=== PATIENT | female | born 1960 | race Asian ===

== ENCOUNTER 2019-08-11 18:14 | Inpatient (IN) | payer SELFPAY ==
[~2019-08-11] VITALS: Ht 149.9 cm; Wt 63.6 kg
[~2019-08-11 18:14] MED LIST: Aspirin PO; LISI10TA PO
--- NOTE | 2019-08-11 18:49 | PHYS DOC ---
Past Medical History Past Medical History: Hypertension Past Surgical History: No Surgical History Alcohol Use: None Drug Use: None NIHSS Stroke Scale NIH Stroke Scale: NIH Stroke Scale Response (Comments) Value Level of Consciousness: 0 Alert/Responsive 0 LOC Questions: 0 Answers both correctly 0 Best Gaze: 0 Normal 0 Visual: 0 No visual loss 0 Facial Palsy: 0 Normal, symmetrical 0 Motor - Left Arm 0 No drift 0 Motor - Right Arm 0 No drift 0 Motor - Left Leg 0 No drift 0 Motor: Right Leg 0 No drift 0 Limb Ataxia: 0 Absent 0 Sensory: 0 No loss 0 Best Language: 0 Normal 0 Dysathria: 0 Normal 0 Extinction and Inattention: 0 Normal 0 Total 0 Adult General Chief Complaint Chief Complaint: NEURO SYMPTOMS/DEFICITS HPI HPI 59-year-old female with history of hypertension presents to the emergency department with complaints of left upper extremity numbness tingling, fluctuating numbness tingling. Patient's last normal when she went to bed last night. She woke with symptoms this morning and have been persistent. Patient denies any motor dysfunction of her upper extremity or lower extremity. She denies any visual changes, facial droop, speech difficulty or slurred speech. Patient describes a headache. Blood pressure initially 200 systolically upper 100s. Given her persistent symptoms she presented to the ER for further evaluation. Nothing makes her symptoms worse, nothing makes her symptoms better. Review of Systems Review of Systems Constitutional: Denies fever or chills [] Eyes: Denies change in visual acuity, redness, or eye pain [] Respiratory: Denies cough or shortness of breath [] Cardiovascular: No additional information not addressed in HPI [] GI: Denies abdominal pain, nausea, vomiting, bloody stools or diarrhea [] : Denies dysuria or hematuria [] Musculoskeletal: Chronic back pain Integument: Denies rash or skin lesions [] Neurologic: + headache, LUE weakness, tingling, LLE weakness, tingling All other systems were reviewed and found to be within normal limits, except as documented in this note. Current Medications Current Medications Current Medications Medications (Trade) Dose Ordered Sig/Gil Start Time Stop Time Status Last Admin Dose Admin Acetaminophen (Tylenol) 650 mg PRN Q4HRS PRN 08/11/19 20:00 08/12/19 19:59 Aspirin (Ammon Aspirin) 325 mg 1X ONCE 08/11/19 20:00 08/11/19 20:01 DC Info (CONTRAST GIVEN -- Rx MONITORING) 1 each PRN DAILY PRN 08/11/19 19:15 08/13/19 19:14 Iohexol (Omnipaque 350 Mg/ml) 100 ml STK-MED ONCE 08/11/19 19:12 08/11/19 19:12 DC Labetalol HCl (Normodyne Iv Push) 10 mg 1X ONCE 08/11/19 19:30 08/11/19 19:31 DC 08/11/19 19:05 10 MG Ondansetron HCl (Zofran) 4 mg PRN Q8HRS PRN 08/11/19 20:00 08/12/19 19:59 Potassium Chloride (Klor-Con) 40 meq 1X ONCE 08/11/19 20:00 08/11/19 20:01 DC Allergies Allergies Allergies Coded Allergies Type Severity Reaction Last Updated Verified No Known Drug Allergies 09/18/15 No Physical Exam Physical Exam Constitutional: Well developed, well nourished, no acute distress, non-toxic appearance. [] HENT: Normocephalic, atraumatic, bilateral external ears normal, oropharynx moist, no oral exudates, nose normal. [] Eyes: PERRLA, EOMI, conjunctiva normal, no discharge. [] Cardiovascular:Heart rate regular rhythm, no murmur [] Lungs & Thorax: Bilateral breath sounds clear to auscultation [] Abdomen: Bowel sounds normal, soft, no tenderness, no masses, no pulsatile mass es. [] Skin: Warm, dry, no erythema, no rash. [] Back: no CVA tenderness. [] Extremities: No tenderness, no cyanosis, no clubbing, ROM intact, no edema. [] Neurologic: Alert and oriented X 3, normal motor function, no focal deficits noted. [] Psychologic: Affect normal, judgement normal, mood normal. [] Current Patient Data Vital Signs Vital Signs Date Time Temp Pulse Resp B/P (MAP) Pulse Ox O2 Delivery O2 Flow Rate FiO2 08/11/19 19:05 78 199/97 08/11/19 18:41 98.6 20 94 Room Air 98.6 Lab Values Laboratory Tests Test 08/11/19 18:48 08/11/19 18:51 Glucose (Fingerstick) 149 mg/dL (70-99) H White Blood Count 5.7 x10^3/uL (4.0-11.0) Red Blood Count 5.07 x10^6/uL (3.50-5.40) Hemoglobin 15.0 g/dL (12.0-15.5) Hematocrit 44.8 % (36.0-47.0) Mean Corpuscular Volume 88 fL (79-100) Mean Corpuscular Hemoglobin 30 pg (25-35) Mean Corpuscular Hemoglobin Concent 34 g/dL (31-37) Red Cell Distribution Width 13.8 % (11.5-14.5) Platelet Count 234 x10^3/uL (140-400) Neutrophils (%) (Auto) 51 % (31-73) Lymphocytes (%) (Auto) 44 % (24-48) Monocytes (%) (Auto) 4 % (0-9) Eosinophils (%) (Auto) 1 % (0-3) Basophils (%) (Auto) 1 % (0-3) Neutrophils # (Auto) 2.9 x10^3/uL (1.8-7.7) Lymphocytes # (Auto) 2.5 x10^3/uL (1.0-4.8) Monocytes # (Auto) 0.2 x10^3/uL (0.0-1.1) Eosinophils # (Auto) 0.1 x10^3/uL (0.0-0.7) Basophils # (Auto) 0.0 x10^3/uL (0.0-0.2) Prothrombin Time 12.4 SEC (11.7-14.0) Prothrombin Time INR 1.0 (0.8-1.1) Activated Partial Thromboplast Time 30 SEC (24-38) Sodium Level 144 mmol/L (136-145) Potassium Level 3.1 mmol/L (3.5-5.1) L Chloride Level 104 mmol/L (98-107) Carbon Dioxide Level 30 mmol/L (21-32) Anion Gap 10 (6-14) Blood Urea Nitrogen 15 mg/dL (7-20) Creatinine 1.0 mg/dL (0.6-1.0) Estimated GFR (Cockcroft-Gault) 56.9 Glucose Level 154 mg/dL (70-99) H Calcium Level 9.2 mg/dL (8.5-10.1) Laboratory Tests 08/11/19 18:51 Laboratory Tests 08/11/19 18:51 EKG EKG EKG reviewed, heart rate 82, normal sinus rhythm, left axis deviation. Nonurgent EKG[] Interpretation Time: Interpretation time 1912 Radiology/Procedures Radiology/Procedures [facility] [address] [place] [address] IMAGING REPORT Signed PATIENT: CARMEN WILBURN ACCOUNT: [id number] : 1960 LOCATION: ER AGE: 59 SEX: F EXAM STATUS: REG ER ORD. PHYSICIAN: YUN CLEVELAND MD REASON: Left upper ext weakness, onset however > 4 hours PROCEDURE: CT HEAD WO CONTRAST CT head without contrast PQRS statement: CT scans at this facility use dose reduction including either automated exposure control, iterative reconstructions, and /or weight based radiation dosing via mA and kV modification when appropriate to reduce radiation dose to as low as reasonably achievable. HISTORY: Left upper extremity weakness. COMPARISON: CT head February 28, 2007. TECHNIQUE: Noncontrast imaging skull base to vertex. FINDINGS: Linear hypodensity of the left external capsule white matter is stable to imaging in 2006 most likely a chronic ischemic or demyelinating lesion. No new infarct since prior imaging or acute ischemic changes evident. No intracranial hemorrhage, mass or hydrocephalus. Orbits, mastoids, paranasal sinuses and bones are unremarkable. Left maxillary sinus small volume of fluid could represent sinusitis. IMPRESSION: No acute intracranial CT abnormality. Electronically signed by: Betr Lin MD (08/11/2019 7:28 PM) [facility] DICTATED and SIGNED BY: BERT LIN MD DATE: 08/11/191927[] Course & Med Decision Making Course & Med Decision Making Pertinent Labs and Imaging studies reviewed. (See chart for details) []59-year-old female with history of hypertension presents to the emergency department with complaints of left upper extremity numbness tingling, fluctuating numbness tingling. Patient's last normal when she went to bed last night. She woke with symptoms this morning and have been persistent. Patient denies any motor dysfunction of her upper extremity or lower extremity. She denies any visual changes, facial droop, speech difficulty or slurred speech. Patient describes a headache. Blood pressure initially 200 systolically upper 100s. Given her persistent symptoms she presented to the ER for further eval uation. Nothing makes her symptoms worse, nothing makes her symptoms better. Labs, imaging reviewed. CT head negative for acute process. She does have some hypokalemia placed in the emergency department. CTA head and neck with official result pending Information, discussed with Dr. Solis, neuro consult placed Discussed admit with patient/family at bedside Dragon Disclaimer Dragon Disclaimer This electronic medical record was generated, in whole or in part, using a voice recognition dictation system. Departure Departure Impression: Primary Impression: Hypertensive urgency Additional Impression: Left sided numbness Disposition: 09 ADMITTED INPATIENT Admitting Physician: MARCO A Condition: STABLE Referrals: INO VICKERS MD (PCP) Problem Qualifiers YUN CLEVELAND MD Aug 11, 2019 18:49
[2019-08-11 19:01] LABS: BASO % 1 % (0-3); EOS # 0.1 x10^3/uL (0.0-0.7); EOS % 1 % (0-3); HEMATOCRIT 44.8 % (36.0-47.0); LYMPH # 2.5 x10^3/uL (1.0-4.8); LYMPH % 44 % (24-48); MEAN CORPUSCULAR HEMOGLOBIN 30 pg (25-35); MEAN CORPUSCULAR HGB CONC 34 g/dL (31-37); MEAN CORPUSCULAR VOLUME 88 fL (79-100); MONO # 0.2 x10^3/uL (0.0-1.1); MONO % 4 % (0-9); NEUT # 2.9 x10^3/uL (1.8-7.7); NEUT % 51 % (31-73); PLATELET COUNT 234 x10^3/uL (140-400); RED BLOOD COUNT 5.07 x10^6/uL (3.50-5.40); RED CELL DISTRIBUTION WIDTH 13.8 % (11.5-14.5); WHITE BLOOD COUNT 5.7 x10^3/uL (4.0-11.0)
[2019-08-11 19:07] LABS: CALCIUM 9.2 mg/dL (8.5-10.1); GFR 56.9; POTASSIUM 3.1 mmol/L (3.5-5.1)
[2019-08-11 19:08] LABS: PROTHROMBIN TIME PATIENT 12.4 SEC (11.7-14.0)
[2019-08-11] MEDS ORDERED: IOHEXOL 350 MG/ML 100 ML VIAL. ONE (19:12)
[2019-08-11] MEDS ORDERED: CONTRAST GIVEN. MC PRN (19:15)
[2019-08-11] MEDS ORDERED: ACETAMINOPHEN 500 MG TABLET PO ONE (19:30)
[2019-08-11] MEDS ORDERED: LABETALOL 20 MG/4 ML DISP.SYRIN. IVP ONE (19:30)
[2019-08-11] MEDS ORDERED: IOHEXOL 350 MG/ML 100 ML VIAL. IV ONE (19:30)
--- NOTE | 2019-08-11 19:31 | RAD ---
CT head without contrast PQRS statement: CT scans at this facility use dose reduction including either automated exposure control, iterative reconstructions, and /or weight based radiation dosing via mA and kV modification when appropriate to reduce radiation dose to as low as reasonably achievable. HISTORY: Left upper extremity weakness. COMPARISON: CT head February 28, 2007. TECHNIQUE: Noncontrast imaging skull base to vertex. FINDINGS: Linear hypodensity of the left external capsule white matter is stable to imaging in 2006 most likely a chronic ischemic or demyelinating lesion. No new infarct since prior imaging or acute ischemic changes evident. No intracranial hemorrhage, mass or hydrocephalus. Orbits, mastoids, paranasal sinuses and bones are unremarkable. Left maxillary sinus small volume of fluid could represent sinusitis. IMPRESSION: No acute intracranial CT abnormality. Electronically signed by: César Lin MD (08/11/2019 7:28 PM) [facility]
--- NOTE | 2019-08-11 19:58 | RAD ---
PORTABLE CHEST 1V Clinical History: Procedures hypertension and possible stroke Technique: AP view of the chest was obtained at 08/11/2019 7:32 PM. Comparison: None. Findings: The cardiomediastinal silhouette is normal. The pulmonary vasculature is normal. The lungs and pleural margins are clear. Impression: No evidence of an acute cardiopulmonary process. Electronically signed by: Serjio Yao III, MD (08/11/2019 7:55 PM) [facility]
[2019-08-11] MEDS ORDERED: ASPIRIN 325 MG TABLET PO ONE (20:00)
[2019-08-11] MEDS ORDERED: POTASSIUM CHLORIDE 20 MEQ TABLET.ER. PO ONE (20:00)
[2019-08-11] MEDS ORDERED: ACETAMINOPHEN 325 MG TABLET. PO PRN (20:00)
[2019-08-11] MEDS ORDERED: ONDANSETRON PF 4 MG/2 ML VIAL. IV PRN (20:00)
--- NOTE | 2019-08-11 20:40 | RAD ---
CT angiography head and neck with contrast COMPARISON: CT head August 11, 2019. Stenosis calculations for CT, MR, and conventional angiography are based upon measurements of the distal ICA diameter in accordance with the NASCET methodology. Stenosis calculations for carotid ultrasound studies are derived from validated velocity criteria which are known to correlate with the NASCET methodology. PQRS statement: CT scans at this facility use dose reduction including either automated exposure control, iterative reconstructions, and /or weight based radiation dosing via mA and kV modification when appropriate to reduce radiation dose to as low as reasonably achievable. HISTORY: Left upper extremity weakness. TECHNIQUE: Helical CT imaging of the head and neck with 3-D MIP and volume reconstructions of the arteries characterize vascular anatomy and pathology with 60 mL Omnipaque 350 intravenous contrast. Neck findings: Three-vessel aortic arch the ostia are patent. Vertebral arteries are patent, no plaque, dissection, thrombus, stenosis or occlusion. Left carotid artery demonstrates very mild partially calcified plaque along the posterior lateral wall the bifurcation and proximal internal carotid without measurable stenosis. Tortuosity of the internal carotid below the skull base. No dissection, thrombus, stenosis or occlusion. Right carotid artery demonstrates very mild calcified plaque in the bifurcation without measurable stenosis. No dissection, thrombus, significant stenosis or occlusion. 4 mm right upper lobe pulmonary nodule adjacent of the pulmonary vessel image 42. Multilevel cervical neural foraminal narrowing due to uncovertebral and facet spurs mainly on the left. Head findings: Calcified plaque cavernous carotid arteries. type bilateral posterior cerebral arteries and resultant hypoplastic basilar artery. No high-grade stenosis, thrombus, occlusion or aneurysm. IMPRESSION: 1. No large vessel occlusion. 2. Mild plaquing without significant stenosis as described above. 3. 4 mm right upper lobe pulmonary nodule. Per Fleischner guidelines if the patient has risk factors for malignancy CT follow-up in 12 months would be advised otherwise no follow-up may be necessary. 4. Cervical disc disease and arthritis as described above. Electronically signed by: César Lin MD (08/11/2019 8:37 PM) [facility]
[2019-08-11 22:17] VITALS: BP 178/97
[2019-08-11] MEDS ORDERED: HYDR12.58 PO (23:44)
[2019-08-11] MEDS ORDERED: INFLUENZA VAX SCREEN BY RX. MC PRN (23:45)
[2019-08-12] MEDS: amLODIPine BESYLATE 10 MG TABLET PO SCH ×2 (00:18→08:45)
[2019-08-12 03:40] VITALS: BP 128/80
[2019-08-12 05:30] LABS: BASO % 1 % (0-3); EOS # 0.1 x10^3/uL (0.0-0.7); EOS % 2 % (0-3); HEMATOCRIT 42.5 % (36.0-47.0); HEMOGLOBIN 14.5 g/dL (12.0-15.5); LYMPH # 2.6 x10^3/uL (1.0-4.8); LYMPH % 47 % (24-48); MEAN CORPUSCULAR HEMOGLOBIN 30 pg (25-35); MEAN CORPUSCULAR HGB CONC 34 g/dL (31-37); MEAN CORPUSCULAR VOLUME 88 fL (79-100); MONO # 0.3 x10^3/uL (0.0-1.1); MONO % 5 % (0-9); NEUT # 2.5 x10^3/uL (1.8-7.7); NEUT % 46 % (31-73); PLATELET COUNT 224 x10^3/uL (140-400); RED BLOOD COUNT 4.84 x10^6/uL (3.50-5.40); RED CELL DISTRIBUTION WIDTH 13.5 % (11.5-14.5); WHITE BLOOD COUNT 5.4 x10^3/uL (4.0-11.0)
[2019-08-12 06:17] LABS: ALBUMIN 3.7 g/dL (3.4-5.0); CALCIUM 9.2 mg/dL (8.5-10.1); CREATININE 0.8 mg/dL (0.6-1.0); GFR 73.7; POTASSIUM 3.3 mmol/L (3.5-5.1); TOTAL BILIRUBIN 0.4 mg/dL (0.2-1.0); TOTAL PROTEIN 7.5 g/dL (6.4-8.2)
--- NOTE | 2019-08-12 06:49 | EKG ---
[facility] [address] [place] [address] Test Date: 2019-08-11 Test Time: 19:00:49 Pat Name: CARMEN WILBURN Department: Room: Gender: F Marketing Director: : 1960 Requested By: YUN CLEVELAND Order Number: [id number] Reading MD: Measurements Intervals [place] Rate: 82 P: 38 NV: 158 QRS: -10 QRSD: 82 T: 32 QT: 380 QTc: 447 Interpretive Statements SINUS RHYTHM LEFTWARD AXIS OTHERWISE NORMAL ECG RI6.01 No previous ECG available for comparison
[2019-08-12 07:41] VITALS: BP 132/82
--- NOTE | 2019-08-12 07:49 | PDOC1 ---
History and Physical Date of Admission Date of Admission DATE: 08/12/19 TIME: 07:48 Identification/Chief Complaint Chief Complaint SEEN IN ER , 59-year-old female with history of hypertension presented to the emergency department with complaints of left upper extremity numbness tingling, fluctuating numbness tingling. Patient's last normal when she went to bed 08/10. She woke with symptoms 08/11 and have been persistent. Patient denies any motor dysfunction of her upper extremity or lower extremity. She denies any visual changes, facial droop, speech difficulty or slurred speech. Patient describes a headache. Blood pressure initially 200 systolically upper 100s. bp now normalized Past Medical History Past Medical History Past Medical History Past Medical History: Hypertension Past Surgical History: No Surgical History Alcohol Use: None Drug Use: None fhx htn PAST MEDICAL HISTORY Cardiovascular: HTN PAST SURGICAL HISTORY Past Surgical History: No pertinent history FAMILY HISTORY HTN SOCIAL HISTORY Smoke: No ALCOHOL: none Drugs: None Lives: with Family Cardiovascular: HTN Past Surgical History Past Surgical History: No pertinent history Family History Family History: Hypertension Social History Smoke: No ALCOHOL: none Drugs: None Current Problem List Problem List Problems Medical Problems: (1) Accelerated hypertension Status: Acute (2) Hypertensive urgency Status: Acute (3) Left sided numbness Status: Acute Current Medications Current Medications Current Medications Labetalol HCl (Normodyne Iv Push) 10 mg 1X ONCE IVP Last administered on 08/11/19at 19:05; Start 08/11/19 at 19:30; Stop 08/11/19 at 19:31; Status DC Acetaminophen (Tylenol) 1,000 mg 1X ONCE PO Last administered on 08/11/19at 19:05; Start 08/11/19 at 19:30; Stop 08/11/19 at 19:31; Status DC Iohexol (Omnipaque 350 Mg/ml) 60 ml 1X ONCE IV Last administered on 08/11/19at 19:19; Start 08/11/19 at 19:30; Stop 08/11/19 at 19:31; Status DC Info (CONTRAST GIVEN -- Rx MONITORING) 1 each PRN DAILY PRN MC SEE COMMENTS; Start 08/11/19 at 19:15; Stop 08/13/19 at 19:14 Iohexol (Omnipaque 350 Mg/ml) 100 ml STK-MED ONCE .ROUTE ; Start 08/11/19 at 19:12; Stop 08/11/19 at 19:12; Status DC Aspirin (Ammon Aspirin) 325 mg 1X ONCE PO Last administered on 08/11/19at 21:14; Start 08/11/19 at 20:00; Stop 08/11/19 at 20:01; Status DC Potassium Chloride (Klor-Con) 40 meq 1X ONCE PO Last administered on 08/11/19at 21:14; Start 08/11/19 at 20:00; Stop 08/11/19 at 20:01; Status DC Ondansetron HCl (Zofran) 4 mg PRN Q8HRS PRN IV NAUSEA/VOMITING; Start 08/11/19 at 20:00; Stop 08/12/19 at 19:59 Acetaminophen (Tylenol) 650 mg PRN Q4HRS PRN PO FEVER Last administered on 08/11/19at 23:42; Start 08/11/19 at 20:00; Stop 08/12/19 at 19:59 Influenza Virus Vaccine Quadrival (Afluria Quad 2019-20 (3yr Up) Syringe) 0.5 ml ONCE ONCE VAX IM ; Start 08/12/19 at 09:00; Stop 08/12/19 at 09:01 Amlodipine Besylate (Norvasc) 10 mg DAILY PO Last administered on 08/12/19at 00:18; Start 08/11/19 at 23:55 Info (FLU VACCINE SCREEN per RX) 1 each PRN 1X PRN MC SEE COMMENTS; Start 08/11/19 at 23:45; Status Cancel Active Scripts Active Prinivil (Lisinopril) 10 Mg Tablet 10 Mg PO DAILY [Aspirin] 81 MG Tablet. 81 Mg PO DAILYWBKFT Reported Hydrochlorothiazide Tablet (Hydrochlorothiazide) 12.5 Mg Tablet 25 Mg PO DAILY Allergies Allergies: Coded Allergies: No Known Drug Allergies (Unverified , 09/18/15) ROS Review of System Review of Systems Review of Systems Constitutional: Denies fever or chills [] Eyes: Denies change in visual acuity, redness, or eye pain [] Respiratory: Denies cough or shortness of breath [] Cardiovascular: No additional information not addressed in HPI [] GI: Denies abdominal pain, nausea, vomiting, bloody stools or diarrhea [] : Denies dysuria or hematuria [] Musculoskeletal: Chronic back pain Integument: Denies rash or skin lesions [] Neurologic: + headache, LUE weakness, tingling, LLE weakness, tingling 14 pt systems were reviewed and found to be within normal limits, except as documented Hematological and Lymphatic: No: Bleeding Problems, Blood Clots, Blood Transfusions, Brusing, Night Sweats, Pallor, Swollen Lymph Nodes, Other Neurological: Yes Headaches Physical Exam Physical Exam Physical Exam Physical Exam Constitutional: Well developed, well nourished, no acute distress, non-toxic appearance. [] HENT: Normocephalic, atraumatic, bilateral external ears normal, oropharynx moist, no oral exudates, nose normal. [] Eyes: PERRLA, EOMI, conjunctiva normal, no discharge. [] Cardiovascular:Heart rate regular rhythm, no murmur [] Lungs & Thorax: Bilateral breath sounds clear to auscultation [] Abdomen: Bowel sounds normal, soft, no tenderness, no masses, no pulsatile masses. [] Skin: Warm, dry, no erythema, no rash. [] Back: no CVA tenderness. [] Extremities: No tenderness, no cyanosis, no clubbing, ROM intact, no edema. [] Neurologic: Alert and oriented X 3, normal motor function, no focal deficits noted. [] Psychologic: Affect normal, judgment normal, mood normal. [] General: No acute distress Lungs: Clear to auscultation, Normal air movement Breasts: Not examined Abdomen: Soft Rectal Exam: not examined Extremities: No cyanosis, No edema Neuro: Normal speech, Cranial nerves 3-12 NL Vitals Vitals Vital Signs Date Time Temp Pulse Resp B/P (MAP) Pulse Ox O2 Delivery O2 Flow Rate FiO2 08/12/19 07:41 98.0 60 18 132/82 (99) 98 Room Air 98.0 Labs Labs Laboratory Tests Test 08/11/19 18:48 08/11/19 18:51 08/12/19 04:19 Glucose (Fingerstick) 149 mg/dL (70-99) White Blood Count 5.7 x10^3/uL (4.0-11.0) 5.4 x10^3/uL (4.0-11.0) Red Blood Count 5.07 x10^6/uL (3.50-5.40) 4.84 x10^6/uL (3.50-5.40) Hemoglobin 15.0 g/dL (12.0-15.5) 14.5 g/dL (12.0-15.5) Hematocrit 44.8 % (36.0-47.0) 42.5 % (36.0-47.0) Mean Corpuscular Volume 88 fL (79-100) 88 fL (79-100) Mean Corpuscular Hemoglobin 30 pg (25-35) 30 pg (25-35) Mean Corpuscular Hemoglobin Concent 34 g/dL (31-37) 34 g/dL (31-37) Red Cell Distribution Width 13.8 % (11.5-14.5) 13.5 % (11.5-14.5) Platelet Count 234 x10^3/uL (140-400) 224 x10^3/uL (140-400) Neutrophils (%) (Auto) 51 % (31-73) 46 % (31-73) Lymphocytes (%) (Auto) 44 % (24-48) 47 % (24-48) Monocytes (%) (Auto) 4 % (0-9) 5 % (0-9) Eosinophils (%) (Auto) 1 % (0-3) 2 % (0-3) Basophils (%) (Auto) 1 % (0-3) 1 % (0-3) Neutrophils # (Auto) 2.9 x10^3/uL (1.8-7.7) 2.5 x10^3/uL (1.8-7.7) Lymphocytes # (Auto) 2.5 x10^3/uL (1.0-4.8) 2.6 x10^3/uL (1.0-4.8) Monocytes # (Auto) 0.2 x10^3/uL (0.0-1.1) 0.3 x10^3/uL (0.0-1.1) Eosinophils # (Auto) 0.1 x10^3/uL (0.0-0.7) 0.1 x10^3/uL (0.0-0.7) Basophils # (Auto) 0.0 x10^3/uL (0.0-0.2) 0.0 x10^3/uL (0.0-0.2) Prothrombin Time 12.4 SEC (11.7-14.0) Prothromb Time International Ratio 1.0 (0.8-1.1) Activated Partial Thromboplast Time 30 SEC (24-38) Sodium Level 144 mmol/L (136-145) 142 mmol/L (136-145) Potassium Level 3.1 mmol/L (3.5-5.1) 3.3 mmol/L (3.5-5.1) Chloride Level 104 mmol/L (98-107) 105 mmol/L (98-107) Carbon Dioxide Level 30 mmol/L (21-32) 27 mmol/L (21-32) Anion Gap 10 (6-14) 10 (6-14) Blood Urea Nitrogen 15 mg/dL (7-20) 14 mg/dL (7-20) Creatinine 1.0 mg/dL (0.6-1.0) 0.8 mg/dL (0.6-1.0) Estimated GFR (Cockcroft-Gault) 56.9 73.7 Glucose Level 154 mg/dL (70-99) 99 mg/dL (70-99) Calcium Level 9.2 mg/dL (8.5-10.1) 9.2 mg/dL (8.5-10.1) BUN/Creatinine Ratio 18 (6-20) Total Bilirubin 0.4 mg/dL (0.2-1.0) Aspartate Amino Transf (AST/SGOT) 15 U/L (15-37) Alanine Aminotransferase (ALT/SGPT) 23 U/L (14-59) Alkaline Phosphatase 60 U/L (46-116) Total Protein 7.5 g/dL (6.4-8.2) Albumin 3.7 g/dL (3.4-5.0) Albumin/Globulin Ratio 1.0 (1.0-1.7) Laboratory Tests Test 08/11/19 18:48 08/11/19 18:51 08/12/19 04:19 Glucose (Fingerstick) 149 mg/dL (70-99) White Blood Count 5.7 x10^3/uL (4.0-11.0) 5.4 x10^3/uL (4.0-11.0) Red Blood Count 5.07 x10^6/uL (3.50-5.40) 4.84 x10^6/uL (3.50-5.40) Hemoglobin 15.0 g/dL (12.0-15.5) 14.5 g/dL (12.0-15.5) Hematocrit 44.8 % (36.0-47.0) 42.5 % (36.0-47.0) Mean Corpuscular Volume 88 fL (79-100) 88 fL (79-100) Mean Corpuscular Hemoglobin 30 pg (25-35) 30 pg (25-35) Mean Corpuscular Hemoglobin Concent 34 g/dL (31-37) 34 g/dL (31-37) Red Cell Distribution Width 13.8 % (11.5-14.5) 13.5 % (11.5-14.5) Platelet Count 234 x10^3/uL (140-400) 224 x10^3/uL (140-400) Neutrophils (%) (Auto) 51 % (31-73) 46 % (31-73) Lymphocytes (%) (Auto) 44 % (24-48) 47 % (24-48) Monocytes (%) (Auto) 4 % (0-9) 5 % (0-9) Eosinophils (%) (Auto) 1 % (0-3) 2 % (0-3) Basophils (%) (Auto) 1 % (0-3) 1 % (0-3) Neutrophils # (Auto) 2.9 x10^3/uL (1.8-7.7) 2.5 x10^3/uL (1.8-7.7) Lymphocytes # (Auto) 2.5 x10^3/uL (1.0-4.8) 2.6 x10^3/uL (1.0-4.8) Monocytes # (Auto) 0.2 x10^3/uL (0.0-1.1) 0.3 x10^3/uL (0.0-1.1) Eosinophils # (Auto) 0.1 x10^3/uL (0.0-0.7) 0.1 x10^3/uL (0.0-0.7) Basophils # (Auto) 0.0 x10^3/uL (0.0-0.2) 0.0 x10^3/uL (0.0-0.2) Prothrombin Time 12.4 SEC (11.7-14.0) Prothromb Time International Ratio 1.0 (0.8-1.1) Activated Partial Thromboplast Time 30 SEC (24-38) Sodium Level 144 mmol/L (136-145) 142 mmol/L (136-145) Potassium Level 3.1 mmol/L (3.5-5.1) 3.3 mmol/L (3.5-5.1) Chloride Level 104 mmol/L (98-107) 105 mmol/L (98-107) Carbon Dioxide Level 30 mmol/L (21-32) 27 mmol/L (21-32) Anion Gap 10 (6-14) 10 (6-14) Blood Urea Nitrogen 15 mg/dL (7-20) 14 mg/dL (7-20) Creatinine 1.0 mg/dL (0.6-1.0) 0.8 mg/dL (0.6-1.0) Estimated GFR (Cockcroft-Gault) 56.9 73.7 Glucose Level 154 mg/dL (70-99) 99 mg/dL (70-99) Calcium Level 9.2 mg/dL (8.5-10.1) 9.2 mg/dL (8.5-10.1) BUN/Creatinine Ratio 18 (6-20) Total Bilirubin 0.4 mg/dL (0.2-1.0) Aspartate Amino Transf (AST/SGOT) 15 U/L (15-37) Alanine Aminotransferase (ALT/SGPT) 23 U/L (14-59) Alkaline Phosphatase 60 U/L (46-116) Total Protein 7.5 g/dL (6.4-8.2) Albumin 3.7 g/dL (3.4-5.0) Albumin/Globulin Ratio 1.0 (1.0-1.7) Images Images CT angiography head and neck with contrast COMPARISON: CT head August 11, 2019. Stenosis calculations for CT, MR, and conventional angiography are based upon measurements of the distal ICA diameter in accordance with the NASCET methodology. Stenosis calculations for carotid ultrasound studies are derived from validated velocity criteria which are known to correlate with the NASCET methodology. PQRS statement: CT scans at this facility use dose reduction including either automated exposure control, iterative reconstructions, and /or weight based radiation dosing via mA and kV modification when appropriate to reduce radiation dose to as low as reasonably achievable. HISTORY: Left upper extremity weakness. TECHNIQUE: Helical CT imaging of the head and neck with 3-D MIP and volume reconstructions of the arteries characterize vascular anatomy and pathology with 60 mL Omnipaque 350 intravenous contrast. Neck findings: Three-vessel aortic arch the ostia are patent. Vertebral arteries are patent, no plaque, dissection, thrombus, stenosis or occlusion. Left carotid artery demonstrates very mild partially calcified plaque along the posterior lateral wall the bifurcation and proximal internal carotid without measurable stenosis. Tortuosity of the internal carotid below the skull base. No dissection, thrombus, stenosis or occlusion. Right carotid artery demonstrates very mild calcified plaque in the bifurcation without measurable stenosis. No dissection, thrombus, significant stenosis or occlusion. 4 mm right upper lobe pulmonary nodule adjacent of the pulmonary vessel image 42. Multilevel cervical neural foraminal narrowing due to uncovertebral and facet spurs mainly on the left. Head findings: Calcified plaque cavernous carotid arteries. type bilateral posterior cerebral arteries and resultant hypoplastic basilar artery. No high-grade stenosis, thrombus, occlusion or aneurysm. IMPRESSION: 1. No large vessel occlusion. 2. Mild plaquing without significant stenosis as described above. 3. 4 mm right upper lobe pulmonary nodule. Per Fleischner guidelines if the patient has risk factors for malignancy CT follow-up in 12 months would be advised otherwise no follow-up may be necessary. 4. Cervical disc disease and arthritis as described above. Electronically signed by: César Lin MD (08/11/2019 8:37 PM) VTE Prophylaxis Ordered VTE Prophylaxis Devices: Yes VTE Pharmacological Prophylaxi: Yes Assessment/Plan Assessment/Plan Impression: Hypertensive urgency, improved Left sided numbness, RESOLVED 08/[address] head Linear hypodensity of the left external capsule white matter is stable to imaging in 2006 most likely a chronic ischemic or demyelinating lesion. No new infarct since prior imaging or acute ischemic changes evident. No intracranial hemorrhage, mass or hydrocephalus hypokalemia ADMITTED tele 6th floor consult neurology bp control neurochecks q 4 hrs echo as out pt low sodium diet flp statin replace k 40MEQ PO X 1 NOW ok to d/c WITH NEUROLOGY, see PCP THURSDAY 56 MIN PT EXAM, CHART REVIEW,> 50% OF TIME SPENT WITH EXAM, CHART REVIEW, D/C PLANNING TAMMI SNYDER MD Aug 12, 2019 07:49
[2019-08-12] MEDS ORDERED: ASPIRIN CHEWABLE 81 MG TABLET. PO SCH (08:30)
[2019-08-12] MEDS ORDERED: FLU VAX QS 2019-20 (36MOS+)/PF 0.5 ML SYRINGE. VAX IM ONE (09:00)
[2019-08-12] MEDS ORDERED: DOCUSATE SODIUM 100 MG CAPSULE. PO PRN (11:30)
[2019-08-12] MEDS ORDERED: ONDANSETRON PF 4 MG/2 ML VIAL. IV PRN (11:30)
[2019-08-12] MEDS ORDERED: LORazepam 0.5 MG TABLET PO PRN (11:30)
[2019-08-12] MEDS ORDERED: ALBUTEROL SULFATE 2.5 MG/3 ML NEBU. NEB PRN (11:30)
[2019-08-12] MEDS ORDERED: 0.9 % SODIUM CHLORIDE 10 ML DISP.SYRIN. IV PRN (11:30)
[2019-08-12] MEDS ORDERED: ACETAMINOPHEN 325 MG TABLET. PO PRN (11:30)
[2019-08-12] MEDS ORDERED: guaiFENesin ORAL 200 MG/10 ML LIQUID. PO PRN (11:30)
[2019-08-12] MEDS ORDERED: MAG HYDROX/ALUMINUM HYD/SIMETH 30 ML ORAL.SUSP PO PRN (11:30)
--- NOTE | 2019-08-12 11:35 | PDOC2 ---
NEUROLOGY CONSULT Date of Admission Date of Admission DATE: 08/12/19 TIME: 11:28 Reason for Consult Reason for Consult: Stroke symptoms Referring Physician Referring Physician: Dr. Sloan Source Source: Chart review, Patient History of Present Illness History of Present Illness The patient is a 59-year-old right-handed female history of hypertension and she admits that she missed a day or 2 of her antihypertensives. 2 nights ago she started noticing some numbness on the left side and last night in the maturing she was found to have severe hypertension. With correction of this, all of her neurological symptoms have resolved, and she would like to go home. There is no prior history of stroke. Past Medical History Cardiovascular: HTN Psych: Anxiety Past Surgical History Past Surgical History: No pertinent history Family History Family History: No pertinent hx Social History Social History Angelic, retired, no alcohol or tobacco Current Medications Current Medications Current Medications Labetalol HCl (Normodyne Iv Push) 10 mg 1X ONCE IVP Last administered on 08/11/19at 19:05; Start 08/11/19 at 19:30; Stop 08/11/19 at 19:31; Status DC Acetaminophen (Tylenol) 1,000 mg 1X ONCE PO Last administered on 08/11/19at 19:05; Start 08/11/19 at 19:30; Stop 08/11/19 at 19:31; Status DC Iohexol (Omnipaque 350 Mg/ml) 60 ml 1X ONCE IV Last administered on 08/11/19at 19:19; Start 08/11/19 at 19:30; Stop 08/11/19 at 19:31; Status DC Info (CONTRAST GIVEN -- Rx MONITORING) 1 each PRN DAILY PRN MC SEE COMMENTS; Start 08/11/19 at 19:15; Stop 08/13/19 at 19:14 Iohexol (Omnipaque 350 Mg/ml) 100 ml STK-MED ONCE .ROUTE ; Start 08/11/19 at 19:12; Stop 08/11/19 at 19:12; Status DC Aspirin (Ammon Aspirin) 325 mg 1X ONCE PO Last administered on 08/11/19at 21:14; Start 08/11/19 at 20:00; Stop 08/11/19 at 20:01; Status DC Potassium Chloride (Klor-Con) 40 meq 1X ONCE PO Last administered on 08/11/19at 21:14; Start 08/11/19 at 20:00; Stop 08/11/19 at 20:01; Status DC Ondansetron HCl (Zofran) 4 mg PRN Q8HRS PRN IV NAUSEA/VOMITING; Start 08/11/19 at 20:00; Stop 08/12/19 at 11:26; Status DC Acetaminophen (Tylenol) 650 mg PRN Q4HRS PRN PO FEVER Last administered on 08/11/19at 23:42; Start 08/11/19 at 20:00; Stop 08/12/19 at 11:26; Status DC Influenza Virus Vaccine Quadrival (Afluria Quad 2019-20 (3yr Up) Syringe) 0.5 ml ONCE ONCE VAX IM Last administered on 08/12/19at 08:55; Start 08/12/19 at 09:00; Stop 08/12/19 at 09:01; Status DC Amlodipine Besylate (Norvasc) 10 mg DAILY PO Last administered on 08/12/19at 08:45; Start 08/11/19 at 23:55 Info (FLU VACCINE SCREEN per RX) 1 each PRN 1X PRN MC SEE COMMENTS; Start 08/11/19 at 23:45; Status Cancel Aspirin (Children'S Aspirin) 81 mg DAILYWBKFT PO Last administered on 08/12/19at 08:52; Start 08/12/19 at 08:30 Lisinopril (Prinivil) 10 mg DAILY PO ; Start 08/12/19 at 12:00 Hydrochlorothiazide (Hydrodiuril) 25 mg DAILY PO ; Start 08/12/19 at 12:00 Non-Formulary Medication ([Aspirin] ) 81 mg DAILYWBKFT PO ; Start 08/13/19 at 08:00; Status UNV Sodium Chloride (Normal Saline Flush) 3 ml QSHIFT PRN IV AFTER MEDS AND BLOOD DRAWS; Start 08/12/19 at 11:30 Ondansetron HCl (Zofran) 4 mg PRN Q4HRS PRN IV NAUSEA/VOMITING; Start 08/12/19 at 11:30 Acetaminophen (Tylenol) 650 mg PRN Q4HRS PRN PO TEMP OVER 100.4F OR MILD PAIN; Start 08/12/19 at 11:30 Al Hydroxide/Mg Hydroxide (Mylanta Plus Xs) 30 ml PRN DAILY PRN PO HEARTBURN / GAS; Start 08/12/19 at 11:30 Docusate Sodium (Colace) 100 mg PRN BID PRN PO CONSTIPATION; Start 08/12/19 at 11:30 Albuterol Sulfate (Ventolin Neb Soln) 2.5 mg PRN Q4HRS PRN NEB SHORTNESS OF BREATH; Start 08/12/19 at 11:30 Guaifenesin (Robitussin) 200 mg PRN Q4HRS PRN PO COUGH; Start 08/12/19 at 11:30 Lorazepam (Ativan) 0.5 mg PRN Q4HRS PRN PO ANXIETY / AGITATION; Start 08/12/19 at 11:30 Enoxaparin Sodium (Lovenox 40mg Syringe) 40 mg DAILY SQ ; Start 08/13/19 at 09:00; Status UNV Active Scripts Active Prinivil (Lisinopril) 10 Mg Tablet 10 Mg PO DAILY [Aspirin] 81 MG Tablet.dr 81 Mg PO DAILYWBKFT Reported Hydrochlorothiazide Tablet (Hydrochlorothiazide) 12.5 Mg Tablet 25 Mg PO DAILY Allergies Allergies: Coded Allergies: No Known Drug Allergies (Unverified , 09/18/15) ROS Review of System Negative for fever, chills, weight loss, shortness of breath, chest pain, indigestion, hematochezia, melena, and dysuria. Full 14-point review of systems is negative. Physical Exam Physical Examination General: Well-developed, well-nourished female in no acute distress HEENT: Normocephalic andatraumatic.Temporal arteriespulsatile and nontender.Fundoscopic exam unremarkable Neck: Supple without bruit, no meningismus Musculoskeletal: Stability:see neurologic. Gait exam:see neurologic. Tone:see neurologic.Strength:see neurologic. Neurological: Mental Status:intact, orientation, memory, attention span/concentration, language, fund of knowledge normal. Cranial Nerves:Pupils equal and reactive to light, extraocular movements areintact, visual abdullahi are full to confrontation. Facial sensation is normal. There is no facial asymmetry. Vestibulo-ocular reflex is intact. Palate elevates and tongue protrudes in midline. All other cranial related problems are negative except as mentioned before.Reflexes:2+ and symmetric with flexor plantar responses. Motor:5/5 strength with normal tone and bulk. Coordination:Finger-nose finger and [id number] testing are normal. Rapid alternating movements and fine finger movements are intact. Gait:Normal, including tandem. Sensory:Normal pinprick, vibration, light touch, proprioception. Vitals VITALS Vital Signs Date Time Temp Pulse Resp B/P (MAP) Pulse Ox O2 Delivery O2 Flow Rate FiO2 08/12/19 08:45 60 132/82 08/12/19 08:00 Room Air 08/12/19 07:41 98.0 18 98 98.0 Labs Labs Laboratory Tests Test 08/11/19 18:48 08/11/19 18:51 08/12/19 04:19 Glucose (Fingerstick) 149 mg/dL (70-99) White Blood Count 5.7 x10^3/uL (4.0-11.0) 5.4 x10^3/uL (4.0-11.0) Red Blood Count 5.07 x10^6/uL (3.50-5.40) 4.84 x10^6/uL (3.50-5.40) Hemoglobin 15.0 g/dL (12.0-15.5) 14.5 g/dL (12.0-15.5) Hematocrit 44.8 % (36.0-47.0) 42.5 % (36.0-47.0) Mean Corpuscular Volume 88 fL (79-100) 88 fL (79-100) Mean Corpuscular Hemoglobin 30 pg (25-35) 30 pg (25-35) Mean Corpuscular Hemoglobin Concent 34 g/dL (31-37) 34 g/dL (31-37) Red Cell Distribution Width 13.8 % (11.5-14.5) 13.5 % (11.5-14.5) Platelet Count 234 x10^3/uL (140-400) 224 x10^3/uL (140-400) Neutrophils (%) (Auto) 51 % (31-73) 46 % (31-73) Lymphocytes (%) (Auto) 44 % (24-48) 47 % (24-48) Monocytes (%) (Auto) 4 % (0-9) 5 % (0-9) Eosinophils (%) (Auto) 1 % (0-3) 2 % (0-3) Basophils (%) (Auto) 1 % (0-3) 1 % (0-3) Neutrophils # (Auto) 2.9 x10^3/uL (1.8-7.7) 2.5 x10^3/uL (1.8-7.7) Lymphocytes # (Auto) 2.5 x10^3/uL (1.0-4.8) 2.6 x10^3/uL (1.0-4.8) Monocytes # (Auto) 0.2 x10^3/uL (0.0-1.1) 0.3 x10^3/uL (0.0-1.1) Eosinophils # (Auto) 0.1 x10^3/uL (0.0-0.7) 0.1 x10^3/uL (0.0-0.7) Basophils # (Auto) 0.0 x10^3/uL (0.0-0.2) 0.0 x10^3/uL (0.0-0.2) Prothrombin Time 12.4 SEC (11.7-14.0) Prothromb Time International Ratio 1.0 (0.8-1.1) Activated Partial Thromboplast Time 30 SEC (24-38) Sodium Level 144 mmol/L (136-145) 142 mmol/L (136-145) Potassium Level 3.1 mmol/L (3.5-5.1) 3.3 mmol/L (3.5-5.1) Chloride Level 104 mmol/L (98-107) 105 mmol/L (98-107) Carbon Dioxide Level 30 mmol/L (21-32) 27 mmol/L (21-32) Anion Gap 10 (6-14) 10 (6-14) Blood Urea Nitrogen 15 mg/dL (7-20) 14 mg/dL (7-20) Creatinine 1.0 mg/dL (0.6-1.0) 0.8 mg/dL (0.6-1.0) Estimated GFR (Cockcroft-Gault) 56.9 73.7 Glucose Level 154 mg/dL (70-99) 99 mg/dL (70-99) Calcium Level 9.2 mg/dL (8.5-10.1) 9.2 mg/dL (8.5-10.1) BUN/Creatinine Ratio 18 (6-20) Total Bilirubin 0.4 mg/dL (0.2-1.0) Aspartate Amino Transf (AST/SGOT) 15 U/L (15-37) Alanine Aminotransferase (ALT/SGPT) 23 U/L (14-59) Alkaline Phosphatase 60 U/L (46-116) Total Protein 7.5 g/dL (6.4-8.2) Albumin 3.7 g/dL (3.4-5.0) Albumin/Globulin Ratio 1.0 (1.0-1.7) Laboratory Tests Test 08/11/19 18:48 08/11/19 18:51 08/12/19 04:19 Glucose (Fingerstick) 149 mg/dL (70-99) White Blood Count 5.7 x10^3/uL (4.0-11.0) 5.4 x10^3/uL (4.0-11.0) Red Blood Count 5.07 x10^6/uL (3.50-5.40) 4.84 x10^6/uL (3.50-5.40) Hemoglobin 15.0 g/dL (12.0-15.5) 14.5 g/dL (12.0-15.5) Hematocrit 44.8 % (36.0-47.0) 42.5 % (36.0-47.0) Mean Corpuscular Volume 88 fL (79-100) 88 fL (79-100) Mean Corpuscular Hemoglobin 30 pg (25-35) 30 pg (25-35) Mean Corpuscular Hemoglobin Concent 34 g/dL (31-37) 34 g/dL (31-37) Red Cell Distribution Width 13.8 % (11.5-14.5) 13.5 % (11.5-14.5) Platelet Count 234 x10^3/uL (140-400) 224 x10^3/uL (140-400) Neutrophils (%) (Auto) 51 % (31-73) 46 % (31-73) Lymphocytes (%) (Auto) 44 % (24-48) 47 % (24-48) Monocytes (%) (Auto) 4 % (0-9) 5 % (0-9) Eosinophils (%) (Auto) 1 % (0-3) 2 % (0-3) Basophils (%) (Auto) 1 % (0-3) 1 % (0-3) Neutrophils # (Auto) 2.9 x10^3/uL (1.8-7.7) 2.5 x10^3/uL (1.8-7.7) Lymphocytes # (Auto) 2.5 x10^3/uL (1.0-4.8) 2.6 x10^3/uL (1.0-4.8) Monocytes # (Auto) 0.2 x10^3/uL (0.0-1.1) 0.3 x10^3/uL (0.0-1.1) Eosinophils # (Auto) 0.1 x10^3/uL (0.0-0.7) 0.1 x10^3/uL (0.0-0.7) Basophils # (Auto) 0.0 x10^3/uL (0.0-0.2) 0.0 x10^3/uL (0.0-0.2) Prothrombin Time 12.4 SEC (11.7-14.0) Prothromb Time International Ratio 1.0 (0.8-1.1) Activated Partial Thromboplast Time 30 SEC (24-38) Sodium Level 144 mmol/L (136-145) 142 mmol/L (136-145) Potassium Level 3.1 mmol/L (3.5-5.1) 3.3 mmol/L (3.5-5.1) Chloride Level 104 mmol/L (98-107) 105 mmol/L (98-107) Carbon Dioxide Level 30 mmol/L (21-32) 27 mmol/L (21-32) Anion Gap 10 (6-14) 10 (6-14) Blood Urea Nitrogen 15 mg/dL (7-20) 14 mg/dL (7-20) Creatinine 1.0 mg/dL (0.6-1.0) 0.8 mg/dL (0.6-1.0) Estimated GFR (Cockcroft-Gault) 56.9 73.7 Glucose Level 154 mg/dL (70-99) 99 mg/dL (70-99) Calcium Level 9.2 mg/dL (8.5-10.1) 9.2 mg/dL (8.5-10.1) BUN/Creatinine Ratio 18 (6-20) Total Bilirubin 0.4 mg/dL (0.2-1.0) Aspartate Amino Transf (AST/SGOT) 15 U/L (15-37) Alanine Aminotransferase (ALT/SGPT) 23 U/L (14-59) Alkaline Phosphatase 60 U/L (46-116) Total Protein 7.5 g/dL (6.4-8.2) Albumin 3.7 g/dL (3.4-5.0) Albumin/Globulin Ratio 1.0 (1.0-1.7) Images Images CT head without contrast Linear hypodensity of the left external capsule white matter is stable to imaging in 2007 most likely a chronic ischemic or demyelinating lesion. No new infarct since prior imaging or acute ischemic changes evident. No intracranial hemorrhage, mass or hydrocephalus. Orbits, mastoids, paranasal sinuses and bones are unremarkable. Left maxillary sinus small volume of fluid could represent sinusitis. IMPRESSION: No acute intracranial CT abnormality. Assessment/Plan Assessment/Plan Impression: Hypertensive encephalopathy, no sign of new stroke, in fact, patient has already had CT angiogram. Medication noncompliance Recommendations: I see no need for additional neurological studies such as brain MRI I did start her on a daily aspirin Okay for discharge of blood pressure remains controlled. Follow-up with neurology as needed. Thank you for letting me help with the patient's care. ATA VALDES MD Aug 12, 2019 11:35
[2019-08-12 11:52] VITALS: BP 105/71
[2019-08-12] MEDS ORDERED: ENOXAPARIN 40 MG/0.4 ML SYRINGE. SQ SCH (12:00)
[2019-08-12] MEDS ORDERED: hydroCHLOROthiazide 25 MG TABLET PO SCH (12:00)
[2019-08-12] MEDS ORDERED: POTASSIUM CHLORIDE 20 MEQ TABLET.ER. PO ONE (12:00)
[2019-08-12] MEDS ORDERED: LISINOPRIL 10 MG TABLET PO SCH (12:00)
--- NOTE | 2019-08-12 12:28 | PDOC3 ---
Discharge Summary Date of Admission: Aug 11, 2019 Date of Discharge: Aug 12, 2019 Follow-Up: 3-5 days Admitting Diagnosis comment: VTE Prophylaxis Ordered VTE Prophylaxis Devices: Yes VTE Pharmacological Prophylaxi: Yes discharge dx Assessment/Plan Impression: Hypertensive urgency, improved Left sided numbness, RESOLVED 08/[address] head Linear hypodensity of the left external capsule white matter is stable to imaging in 2006 most likely a chronic ischemic or demyelinating lesion. No new infarct since prior imaging or acute ischemic changes evident. No intracranial hemorrhage, mass or hydrocephalus hypokalemia ADMITTED tele 6th floor consult neurology bp control neurochecks q 4 hrs echo as out pt low sodium diet flp statin replace k 40MEQ PO X 1 NOW ok to d/c WITH NEUROLOGY, see PCP THURSDAY 56 MIN PT EXAM, CHART REVIEW,> 50% OF TIME SPENT WITH EXAM, CHART REVIEW, D/C PLANNING FINAL DIAGNOSIS Problems Medical Problems: (1) Accelerated hypertension Status: Acute (2) Hypertensive urgency Status: Acute (3) Left sided numbness Status: Acute Brief Hospital Course Ms. Mejia is a 59 old [sex] who presented with [htn, cva symptoms ] CONDITION AT DISCHARGE: Improved Discharge Medications Current Medications Labetalol HCl (Normodyne Iv Push) 10 mg 1X ONCE IVP Last administered on 08/11/19at 19:05; Start 08/11/19 at 19:30; Stop 08/11/19 at 19:31; Status DC Acetaminophen (Tylenol) 1,000 mg 1X ONCE PO Last administered on 08/11/19at 19:05; Start 08/11/19 at 19:30; Stop 08/11/19 at 19:31; Status DC Iohexol (Omnipaque 350 Mg/ml) 60 ml 1X ONCE IV Last administered on 08/11/19at 19:19; Start 08/11/19 at 19:30; Stop 08/11/19 at 19:31; Status DC Info (CONTRAST GIVEN -- Rx MONITORING) 1 each PRN DAILY PRN MC SEE COMMENTS; Start 08/11/19 at 19:15; Stop 08/13/19 at 19:14 Iohexol (Omnipaque 350 Mg/ml) 100 ml STK-MED ONCE .ROUTE ; Start 08/11/19 at 19:12; Stop 08/11/19 at 19:12; Status DC Aspirin (Ammon Aspirin) 325 mg 1X ONCE PO Last administered on 08/11/19at 21:14; Start 08/11/19 at 20:00; Stop 08/11/19 at 20:01; Status DC Potassium Chloride (Klor-Con) 40 meq 1X ONCE PO Last administered on 08/11/19at 21:14; Start 08/11/19 at 20:00; Stop 08/11/19 at 20:01; Status DC Ondansetron HCl (Zofran) 4 mg PRN Q8HRS PRN IV NAUSEA/VOMITING; Start 08/11/19 at 20:00; Stop 08/12/19 at 11:26; Status DC Acetaminophen (Tylenol) 650 mg PRN Q4HRS PRN PO FEVER Last administered on 08/11/19at 23:42; Start 08/11/19 at 20:00; Stop 08/12/19 at 11:26; Status DC Influenza Virus Vaccine Quadrival (Afluria Quad 2019-20 (3yr Up) Syringe) 0.5 ml ONCE ONCE VAX IM Last administered on 08/12/19at 08:55; Start 08/12/19 at 09:00; Stop 08/12/19 at 09:01; Status DC Amlodipine Besylate (Norvasc) 10 mg DAILY PO Last administered on 08/12/19at 08:45; Start 08/11/19 at 23:55 Info (FLU VACCINE SCREEN per RX) 1 each PRN 1X PRN MC SEE COMMENTS; Start 08/11/19 at 23:45; Status Cancel Aspirin (Children'S Aspirin) 81 mg DAILYWBKFT PO Last administered on 08/12/19at 08:52; Start 08/12/19 at 08:30 Lisinopril (Prinivil) 10 mg DAILY PO ; Start 08/12/19 at 12:00 Hydrochlorothiazide (Hydrodiuril) 25 mg DAILY PO ; Start 08/12/19 at 12:00 Non-Formulary Medication ([Aspirin] ) 81 mg DAILYWBKFT PO ; Start 08/13/19 at 08:00; Status UNV Sodium Chloride (Normal Saline Flush) 3 ml QSHIFT PRN IV AFTER MEDS AND BLOOD DRAWS; Start 08/12/19 at 11:30 Ondansetron HCl (Zofran) 4 mg PRN Q4HRS PRN IV NAUSEA/VOMITING; Start 08/12/19 at 11:30 Acetaminophen (Tylenol) 650 mg PRN Q4HRS PRN PO TEMP OVER 100.4F OR MILD PAIN; Start 08/12/19 at 11:30 Al Hydroxide/Mg Hydroxide (Mylanta Plus Xs) 30 ml PRN DAILY PRN PO HEARTBURN / GAS; Start 08/12/19 at 11:30 Docusate Sodium (Colace) 100 mg PRN BID PRN PO CONSTIPATION; Start 08/12/19 at 11:30 Albuterol Sulfate (Ventolin Neb Soln) 2.5 mg PRN Q4HRS PRN NEB SHORTNESS OF BREATH; Start 08/12/19 at 11:30 Guaifenesin (Robitussin) 200 mg PRN Q4HRS PRN PO COUGH; Start 08/12/19 at 11: 30 Lorazepam (Ativan) 0.5 mg PRN Q4HRS PRN PO ANXIETY / AGITATION; Start 08/12/19 at 11:30 Enoxaparin Sodium (Lovenox 40mg Syringe) 40 mg DAILY SQ ; Start 08/12/19 at 12:00 Atorvastatin Calcium (Lipitor) 20 mg QHS PO ; Start 08/12/19 at 21:00 Potassium Chloride (Klor-Con) 40 meq 1X ONCE PO ; Start 08/12/19 at 12:00; Stop 08/12/19 at 12:01; Status DC Active Scripts Active Prinivil (Lisinopril) 10 Mg Tablet 10 Mg PO DAILY [Aspirin] 81 MG Tablet.dr 81 Mg PO DAILYWBKFT Reported Hydrochlorothiazide Tablet (Hydrochlorothiazide) 12.5 Mg Tablet 25 Mg PO DAILY Vital Signs Vital Signs Date Time Temp Pulse Resp B/P (MAP) Pulse Ox O2 Delivery O2 Flow Rate FiO2 08/12/19 11:52 98.2 67 18 105/71 (82) 97 Room Air 98.2 Labs Laboratory Tests Test 08/11/19 18:48 08/11/19 18:51 08/12/19 04:19 Glucose (Fingerstick) 149 mg/dL (70-99) White Blood Count 5.7 x10^3/uL (4.0-11.0) 5.4 x10^3/uL (4.0-11.0) Red Blood Count 5.07 x10^6/uL (3.50-5.40) 4.84 x10^6/uL (3.50-5.40) Hemoglobin 15.0 g/dL (12.0-15.5) 14.5 g/dL (12.0-15.5) Hematocrit 44.8 % (36.0-47.0) 42.5 % (36.0-47.0) Mean Corpuscular Volume 88 fL (79-100) 88 fL (79-100) Mean Corpuscular Hemoglobin 30 pg (25-35) 30 pg (25-35) Mean Corpuscular Hemoglobin Concent 34 g/dL (31-37) 34 g/dL (31-37) Red Cell Distribution Width 13.8 % (11.5-14.5) 13.5 % (11.5-14.5) Platelet Count 234 x10^3/uL (140-400) 224 x10^3/uL (140-400) Neutrophils (%) (Auto) 51 % (31-73) 46 % (31-73) Lymphocytes (%) (Auto) 44 % (24-48) 47 % (24-48) Monocytes (%) (Auto) 4 % (0-9) 5 % (0-9) Eosinophils (%) (Auto) 1 % (0-3) 2 % (0-3) Basophils (%) (Auto) 1 % (0-3) 1 % (0-3) Neutrophils # (Auto) 2.9 x10^3/uL (1.8-7.7) 2.5 x10^3/uL (1.8-7.7) Lymphocytes # (Auto) 2.5 x10^3/uL (1.0-4.8) 2.6 x10^3/uL (1.0-4.8) Monocytes # (Auto) 0.2 x10^3/uL (0.0-1.1) 0.3 x10^3/uL (0.0-1.1) Eosinophils # (Auto) 0.1 x10^3/uL (0.0-0.7) 0.1 x10^3/uL (0.0-0.7) Basophils # (Auto) 0.0 x10^3/uL (0.0-0.2) 0.0 x10^3/uL (0.0-0.2) Prothrombin Time 12.4 SEC (11.7-14.0) Prothromb Time International Ratio 1.0 (0.8-1.1) Activated Partial Thromboplast Time 30 SEC (24-38) Sodium Level 144 mmol/L (136-145) 142 mmol/L (136-145) Potassium Level 3.1 mmol/L (3.5-5.1) 3.3 mmol/L (3.5-5.1) Chloride Level 104 mmol/L (98-107) 105 mmol/L (98-107) Carbon Dioxide Level 30 mmol/L (21-32) 27 mmol/L (21-32) Anion Gap 10 (6-14) 10 (6-14) Blood Urea Nitrogen 15 mg/dL (7-20) 14 mg/dL (7-20) Creatinine 1.0 mg/dL (0.6-1.0) 0.8 mg/dL (0.6-1.0) Estimated GFR (Cockcroft-Gault) 56.9 73.7 Glucose Level 154 mg/dL (70-99) 99 mg/dL (70-99) Calcium Level 9.2 mg/dL (8.5-10.1) 9.2 mg/dL (8.5-10.1) BUN/Creatinine Ratio 18 (6-20) Total Bilirubin 0.4 mg/dL (0.2-1.0) Aspartate Amino Transf (AST/SGOT) 15 U/L (15-37) Alanine Aminotransferase (ALT/SGPT) 23 U/L (14-59) Alkaline Phosphatase 60 U/L (46-116) Total Protein 7.5 g/dL (6.4-8.2) Albumin 3.7 g/dL (3.4-5.0) Albumin/Globulin Ratio 1.0 (1.0-1.7) Laboratory Tests Test 08/11/19 18:48 08/11/19 18:51 08/12/19 04:19 Glucose (Fingerstick) 149 mg/dL (70-99) White Blood Count 5.7 x10^3/uL (4.0-11.0) 5.4 x10^3/uL (4.0-11.0) Red Blood Count 5.07 x10^6/uL (3.50-5.40) 4.84 x10^6/uL (3.50-5.40) Hemoglobin 15.0 g/dL (12.0-15.5) 14.5 g/dL (12.0-15.5) Hematocrit 44.8 % (36.0-47.0) 42.5 % (36.0-47.0) Mean Corpuscular Volume 88 fL (79-100) 88 fL (79-100) Mean Corpuscular Hemoglobin 30 pg (25-35) 30 pg (25-35) Mean Corpuscular Hemoglobin Concent 34 g/dL (31-37) 34 g/dL (31-37) Red Cell Distribution Width 13.8 % (11.5-14.5) 13.5 % (11.5-14.5) Platelet Count 234 x10^3/uL (140-400) 224 x10^3/uL (140-400) Neutrophils (%) (Auto) 51 % (31-73) 46 % (31-73) Lymphocytes (%) (Auto) 44 % (24-48) 47 % (24-48) Monocytes (%) (Auto) 4 % (0-9) 5 % (0-9) Eosinophils (%) (Auto) 1 % (0-3) 2 % (0-3) Basophils (%) (Auto) 1 % (0-3) 1 % (0-3) Neutrophils # (Auto) 2.9 x10^3/uL (1.8-7.7) 2.5 x10^3/uL (1.8-7.7) Lymphocytes # (Auto) 2.5 x10^3/uL (1.0-4.8) 2.6 x10^3/uL (1.0-4.8) Monocytes # (Auto) 0.2 x10^3/uL (0.0-1.1) 0.3 x10^3/uL (0.0-1.1) Eosinophils # (Auto) 0.1 x10^3/uL (0.0-0.7) 0.1 x10^3/uL (0.0-0.7) Basophils # (Auto) 0.0 x10^3/uL (0.0-0.2) 0.0 x10^3/uL (0.0-0.2) Prothrombin Time 12.4 SEC (11.7-14.0) Prothromb Time International Ratio 1.0 (0.8-1.1) Activated Partial Thromboplast Time 30 SEC (24-38) Sodium Level 144 mmol/L (136-145) 142 mmol/L (136-145) Potassium Level 3.1 mmol/L (3.5-5.1) 3.3 mmol/L (3.5-5.1) Chloride Level 104 mmol/L (98-107) 105 mmol/L (98-107) Carbon Dioxide Level 30 mmol/L (21-32) 27 mmol/L (21-32) Anion Gap 10 (6-14) 10 (6-14) Blood Urea Nitrogen 15 mg/dL (7-20) 14 mg/dL (7-20) Creatinine 1.0 mg/dL (0.6-1.0) 0.8 mg/dL (0.6-1.0) Estimated GFR (Cockcroft-Gault) 56.9 73.7 Glucose Level 154 mg/dL (70-99) 99 mg/dL (70-99) Calcium Level 9.2 mg/dL (8.5-10.1) 9.2 mg/dL (8.5-10.1) BUN/Creatinine Ratio 18 (6-20) Total Bilirubin 0.4 mg/dL (0.2-1.0) Aspartate Amino Transf (AST/SGOT) 15 U/L (15-37) Alanine Aminotransferase (ALT/SGPT) 23 U/L (14-59) Alkaline Phosphatase 60 U/L (46-116) Total Protein 7.5 g/dL (6.4-8.2) Albumin 3.7 g/dL (3.4-5.0) Albumin/Globulin Ratio 1.0 (1.0-1.7) Allergies Allergies Coded Allergies Type Severity Reaction Last Updated Verified No Known Drug Allergies 09/18/15 No Disposition/Orders: D/C to Home TAMMI SNYDER MD Aug 12, 2019 12:28
[2019-08-12] MEDS ORDERED: ATOR20TA58 PO (12:30)
[2019-08-12] MEDS ORDERED: AMLO10TA8 PO (12:30)
--- NOTE | 2019-08-12 12:31 | DISCH ---
DISCHARGE INSTRUCTIONS Condition on Discharge Condition on Discharge: Stable Activity After Discharge Activity Instructions for Disc: No restrictions, Activity as tolerated Lifting Instructions after Dis: No heavy lifting, No pulling or pushing Exercise Instruction after Dis: Walk 10 min, 3 x per day Driving Instructions after Dis: Do not drive today Diet after Discharge Diet after Discharge: Cardiac Liquid Texture: Thin Liquid Checks after Discharge Checks after discharge: Check blood press - daily Contacting the DR. after DC Call your doctor for: If your condition worsens Treatment/Equipment after DC Adaptive Equipment Issued: None TAMMI SNYDER MD Aug 12, 2019 12:31
--- NOTE | 2019-08-12 15:33 | NUR ---
Pt discharged to home. Discharge teaching gone over with patient and family. Pt walked out with transportation provided by family.
--- NOTE | 2019-08-12 15:41 | CARD ---
MR#: [id number] Date of Study: 08/12/2019 Ordering Physician: TAMMI SNYDER, Referring Physician: TAMMI SNYDER, Tech: Angelic Espinosa APPROVED REPORT EXAM: Two-dimensional and M-mode echocardiogram with Doppler and color Doppler. Other Information Quality : AverageHR: 74bpm INDICATION Hypertension/HCVD 2D DIMENSIONS RVDd2.2 (2.9-3.5cm)Left Atrium(2D)2.1 (1.6-4.0cm) IVSd1.2 (0.7-1.1cm)Aortic Root(2D)3.2 (2.0-3.7cm) LVDd3.8 (3.9-5.9cm)LVOT Diameter2.0 (1.8-2.4cm) PWd1.3 (0.7-1.1cm) Aortic Valve AoV Peak Brennan.156.2cm/sAoV VTI28.0cm AO Peak GR.9.8mmHgLVOT VTI 21.86cm AO Mean GR.5mmHgAI P 1/2 [id number] Mitral Valve MV E Ajrxtlsp97.9cm/sMV DECEL [id number] MV A Yiwqlnok66.8cm/sE/A Ratio0.7 TDI Lateral E' P. V9.07cm/sMedial E' P. V5.60cm/s E/Lateral E'5.6E/Medial E'9.1 Tricuspid Valve TR P. [id number]/sRAP [id number] TR Peak Gr.07ppQzVVVT79arRc Pulmonary Vein S1 Hiygpajc55.5cm/sS2 Vxxwtaze22.87cm/s D2 Wzwrqxtc20.9cm/sPVa [id number] LEFT VENTRICLE The left ventricle is normal size. There is mild concentric left ventricular hypertrophy. The left ve ntricular systolic function is normal and the ejection fraction is within normal range. The Ejection Fraction is >55%. There is normal LV segmental wall motion. Transmitral Doppler flow pattern is Grade I-abnormal relaxation pattern. RIGHT VENTRICLE The right ventricle is normal size. There is normal right ventricular wall thickness. The right ventr icular systolic function is normal. ATRIA The left atrium size is normal. The right atrium size is normal. The interatrial septum is intact wit h no evidence for an atrial septal defect or patent foramen ovale as noted on 2-D or Doppler imaging. AORTIC VALVE The aortic valve is normal in structure and function. Doppler and Color Flow revealed trace to mild a ortic regurgitation. There is no significant aortic valvular stenosis. MITRAL VALVE The mitral valve is normal in structure and function. There is no evidence of mitral valve prolapse. There is no mitral valve stenosis. Doppler and Color-flow revealed trace mitral regurgitation. TRICUSPID VALVE The tricuspid valve is normal in structure and function. Doppler and Color Flow revealed trace tricus pid regurgitation with an estimated PAP of 29 mmHg. mm There is no tricuspid valve prolapse. There is no tricuspid valve stenosis. PULMONIC VALVE The pulmonic valve is not well visualized. Doppler and Color Flow revealed no pulmonic valvular regur gitation. There is no pulmonic valvular stenosis. GREAT VESSELS The aortic root is normal in size. The ascending aorta is mildly to moderately dilated at 3.7 cm The IVC is normal in size and collapses >50% with inspiration. PERICARDIAL EFFUSION There is a trace pericardial effusion. Critical Notification Critical Value: No <Conclusion> The left ventricular systolic function is normal and the ejection fraction is within normal range. Th e Ejection Fraction is >55%. There is normal LV segmental wall motion. Doppler and Color Flow revealed trace to mild aortic regurgitation. The ascending aorta is mildly to moderately dilated at 3.7 cm Signed by : Jimenez Reyes, Electronically Approved : 08/12/2019 15:41:21
[2019-08-12] MEDS ORDERED: ATORVASTATIN CALCIUM 20 MG TABLET PO SCH (21:00)
[2019-08-13] MEDS ORDERED: ASPIRIN 81 MG PO SCH (08:00)
== END 2019-08-12 15:08 | disposition home or self-care (01) | DRG 305 ==
LOC: ER 18:14 → 6 SOUTH 19:37
PROVIDERS: ADMIT Internal Medicine; ATTEND Internal Medicine
DX: I16.0 Hypertensive urgency (principal); I67.4 Hypertensive encephalopathy; I11.9 Hypertensive heart disease without heart failure; M19.90 Unspecified osteoarthritis, unspecified site; M50.90 Cervical disc disorder, unspecified, unspecified cervical region; F41.9 Anxiety disorder, unspecified; Z82.49 Family history of ischemic heart disease and other diseases of the circulatory system; Z91.14 Patient's other noncompliance with medication regimen
CPT/HCPCS: 36415; 70450; 70496; 70498; 71045; 80048; 80053; 82962; 85025; 85610; 85730; 90471; 90686; 93005; 93306; 94640; 96374; J3490; Q9967; 99285-25; G0378

== ENCOUNTER → 2020-12-14 | Outpatient (CLI) | payer SELFPAY ==
[~2020-12-14] MED LIST changes: +AMLO-187 PO; +ATOR20TA58 PO; +HYDR12.58 PO
--- NOTE | 2020-12-15 08:44 | RAD ---
INDICATION: Reason: VULVAR MASS / Spl. Instructions: / History: COMPARISON: None. FINDINGS: Focused ultrasound images are obtained of the vulvar region. At the right vulvar region there is a 62 x 19 x 37 mm masslike structure seen within the subcutaneous soft tissues which appears mixed echogenicity. There is some adjacent edema. IMPRESSION: * Masslike structure is seen within the right vulva region which has a solid appearance. There is a lso some internal vascularity within. Possible causes would include both benign causes such as lipoma as well as malignant neoplasm such as sarcoma. This does not have the appearance of a cyst or absces s. Further workup option would include biopsy. Electronically signed by: Kyle Mitchell MD (12/15/2020 8:41 AM) [id number]
== END ==
LOC: US 15:20
PROVIDERS: ATTEND Obstetrics & Gynecology
DX: N90.9 Noninflammatory disorder of vulva and perineum, unspecified (principal)
CPT/HCPCS: 76856